=== PATIENT | female | born 1995 | race Caucasian/White ===

== ENCOUNTER 2023-08-25 23:52 | Emergency (ER) | payer OTHER ==
[~2023-08-25] VITALS: Ht 170.2 cm; Wt 84.1 kg
[2023-08-25 23:58] VITALS: TEMP 97.6
[2023-08-26 00:21] LABS: APPEARANCE,URINE HAZY (CLEAR); BILIRUBIN,URINE NEGATIVE (NEGATIVE); COLOR,URINE YELLOW (YELLOW); GLUCOSE, URINE (UA) NEGATIVE (NEGATIVE); KETONES,URINE TRACE mg/dL (NEGATIVE); LEUKOCYTE ESTERASE ,URINE SMALL (NEGATIVE); NITRATE,URINE NEGATIVE (NEGATIVE); OCCULT BLOOD,URINE NEGATIVE (NEGATIVE); PROTEIN,URINE NEGATIVE (NEGATIVE); SPECIFIC GRAVITIY, URINE 1.025 (1.003-1.030)
[2023-08-26 00:33] LABS: BACTERIA,URINE Few /HPF (None Seen); RBC,URINE None Seen /HPF (0-2)
[2023-08-26 00:34] LABS: CALCIUM OXALATE CRYSTALS,UR Rare /LPF (None Seen); SQUAMOUS EPITHELIAL CELL,UR Few /LPF (None Seen)
[2023-08-26] MEDS: ONDANSETRON HCL 4 MG/2 ML VIAL IVP ONE (01:54)
[2023-08-26] MEDS: HYDROmorphone HCL 2 MG/ML SYRINGE IVP ONE (01:54)
[2023-08-26 01:59] LABS: BASOPHILS % (AUTO) 0.4 % (0.0-2.0); EOSINOPHILS % (AUTO) 1.3 % (1.0-6.0); HEMATOCRIT 41.1 % (36-46); HEMOGLOBIN 13.3 g/dL (12.0-16.0); LYMPHOCYTES # (AUTO) 2.5 K/uL (1.0-4.8); LYMPHOCYTES % (AUTO) 36.4 % (22.0-44.0); MEAN CORPUSCULAR HEMOGLOBIN 25.2 pg (26.0-34.0); MEAN CORPUSCULAR HGB CONC 32.4 G/dL (31.0-37.0); MEAN CORPUSCULAR VOLUME 78 fL (80-100); MONOCYTES # (AUTO) 0.6 K/uL (0.1-1.0); MONOCYTES % (AUTO) 8.3 % (2.0-9.0); NEUTROPHILS # (AUTO) 3.7 K/uL (1.8-7.7); NEUTROPHILS % (AUTO) 53.6 % (40.0-70.0); PLATELET COUNT (AUTO) 287 K/uL (150-450); RED BLOOD CELL COUNT(AUTO) 5.29 MIL/uL (4.00-5.20); RED CELL DISTRIBUTION WIDTH 15.2 % (11.5-14.5)
[2023-08-26 02:08] LABS: ANION GAP 9 mmol/L (8-16); CALCIUM, TOTAL 9.4 mg/dL (8.8-10.5); CARBON DIOXIDE 29 mmol/L (22-29); CHLORIDE 104 mmol/L (98-107); CREATININE 0.67 mg/dL (0.60-1.30); GLOMERULAR FILTR. RATE CALC > 60 mL/min (>60); GLUCOSE,RANDOM 76 mg/dL (70-110); POTASSIUM 3.7 mmol/L (3.5-5.1); SODIUM SERUM 142 mmol/L (136-145); UREA NITROGEN, BLOOD 10 mg/dL (7-18)
[2023-08-26 02:14] LABS: ALANINE AMINOTRANSFERASE 25 U/L (12-78); ALBUMIN 3.7 g/dL (3.4-5.0); ALKALINE PHOSPHATASE 99 U/L (46-116); ASPARTATE AMINOTRANSFERASE 20 U/L (15-37); BILIRUBIN,TOTAL 0.3 mg/dL (0.1-1.0); LIPASE 48 U/L (16-77); TOTAL PROTEIN, SERUM 7.1 g/dL (6.4-8.2)
[2023-08-26] MEDS ORDERED: SODIUM CHLORIDE 0.9% 100 ML ONE (02:46)
[2023-08-26] MEDS ORDERED: IOHEXOL 350 MG/ML 100 ML VIAL ONE (02:46)
[2023-08-26] MEDS: ACETAMINOPHEN 1000 MG/ISO-OSM 100 ML IV ONE (03:31)
[2023-08-26] MEDS ORDERED: POLY17PO11 PO (04:15)
[2023-08-26] MEDS ORDERED: PHEN-846 PO (04:15)
[2023-08-26] MEDS ORDERED: CEPH-558 PO (04:15)
[2023-08-26 04:46] VITALS: BP 127/77; PULSE 81; RESP 19
== END 2023-08-26 04:53 | disposition home or self-care (01) ==
LOC: EMS 23:53
DX: N39.0 Urinary tract infection, site not specified (principal); K59.00 Constipation, unspecified; Z88.8 Allergy status to other drugs, medicaments and biological substances
CPT/HCPCS: 99285; 80053; 81001; 83690; 84703; 85025; 36415; 87086; 87186; 74177; 96365; 96375; J1170; J2405; Q9967; J7050; J0131

== ENCOUNTER 2024-12-21 11:40 | Emergency (ER) | payer MEDICAID, OTHER ==
[~2024-12-21] VITALS: Ht 170.2 cm; Wt 75.0 kg
[~2024-12-21 11:40] MED LIST: CEPH-558 PO; PHEN-846 PO; POLY17PO62 PO
[2024-12-21 11:43] VITALS: BP 114/65; PULSE 104; RESP 18; TEMP 98.2; O2SAT 100
== END 2024-12-21 12:34 | disposition left against medical advice (07) ==
LOC: EMS 11:41
DX: T78.40XA Allergy, unspecified, initial encounter (principal); Z53.21 Procedure and treatment not carried out due to patient leaving prior to being seen by health care provider
CPT/HCPCS: 99281; Z7502

== ENCOUNTER 2024-12-31 14:44 | Emergency (ER) | payer MEDICAID ==
[~2024-12-31] VITALS: Ht 170.2 cm; Wt 68.2 kg
[2024-12-31 14:48] VITALS: BP 134/88; PULSE 126; RESP 20; TEMP 98.6; O2SAT 100
[2024-12-31 15:12] LABS: BASOPHILS % (AUTO) 0.5 % (0.0-2.0); EOSINOPHILS % (AUTO) 0.6 % (1.0-6.0); HEMATOCRIT 40.2 % (36-46); HEMOGLOBIN 13.1 g/dL (12.0-16.0); LYMPHOCYTES % (AUTO) 24.8 % (22.0-44.0); MEAN CORPUSCULAR HEMOGLOBIN 25.3 pg (26.0-34.0); MEAN CORPUSCULAR HGB CONC 32.7 G/dL (31.0-37.0); MEAN CORPUSCULAR VOLUME 77 fL (80-100); MONOCYTES # (AUTO) 0.6 K/uL (0.1-1.0); MONOCYTES % (AUTO) 7.8 % (2.0-9.0); NEUTROPHILS # (AUTO) 5.3 K/uL (1.8-7.7); NEUTROPHILS % (AUTO) 66.3 % (40.0-70.0); PLATELET COUNT (AUTO) 276 K/uL (150-450); RED BLOOD CELL COUNT(AUTO) 5.19 MIL/uL (4.00-5.20); RED CELL DISTRIBUTION WIDTH 14.3 % (11.5-14.5); WHITE BLOOD COUNT (AUTO) 7.9 K/uL (4.5-11.0)
[2024-12-31 15:21] LABS: ANION GAP 5 mmol/L (8-16); CALCIUM, TOTAL 9.2 mg/dL (8.8-10.5); CARBON DIOXIDE 27 mmol/L (22-29); CHLORIDE 106 mmol/L (98-107); CREATININE 0.84 mg/dL (0.60-1.30); GLOMERULAR FILTR. RATE CALC > 60 mL/min (>60); GLUCOSE,RANDOM 104 mg/dL (70-110); POTASSIUM 3.7 mmol/L (3.5-5.1); SODIUM SERUM 138 mmol/L (136-145); UREA NITROGEN, BLOOD 14 mg/dL (7-18)
[2024-12-31 15:35] LABS: APPEARANCE,URINE CLEAR (CLEAR); BILIRUBIN,URINE NEGATIVE (NEGATIVE); COLOR,URINE LIGHT YELLOW (YELLOW); GLUCOSE, URINE (UA) NEGATIVE (NEGATIVE); KETONES,URINE NEGATIVE (NEGATIVE); LEUKOCYTE ESTERASE ,URINE TRACE (NEGATIVE); NITRATE,URINE NEGATIVE (NEGATIVE); OCCULT BLOOD,URINE TRACE (NEGATIVE); PROTEIN,URINE NEGATIVE (NEGATIVE); SPECIFIC GRAVITIY, URINE 1.023 (1.003-1.030); UROBILINOGEN,URINE <=1.0 mg/dL (<=1.0)
[2024-12-31 16:04] LABS: BACTERIA,URINE Moderate /HPF (None Seen); RBC,URINE 0-2 /HPF (0-2); SQUAMOUS EPITHELIAL CELL,UR Few /LPF (None Seen)
[2024-12-31] MEDS: MORPHINE SULFATE 2 MG/ML SYRINGE IVP ONE (16:20)
[2024-12-31] MEDS: SODIUM CHLORIDE 0.9% 1,000 ML IV ONE (16:21)
== END 2024-12-31 19:12 | disposition home or self-care (01) ==
LOC: EMS 14:44
DX: N83.202 Unspecified ovarian cyst, left side (principal); R10.30 Lower abdominal pain, unspecified; E78.00 Pure hypercholesterolemia, unspecified; Z87.442 Personal history of urinary calculi; Z88.1 Allergy status to other antibiotic agents; Z88.8 Allergy status to other drugs, medicaments and biological substances
CPT/HCPCS: 99285; 96374; 76856; 96361; 80048; 81001; 83690; 84702; 84703; 85025; 87077; 87086; 87186; 86850; 86900; 86901; 36415; 74018; J2270; J7030; 99284

== ENCOUNTER 2025-03-30 01:41 | Emergency (ER) | payer MEDICAID ==
[~2025-03-30] VITALS: Ht 170.2 cm; Wt 74.1 kg
[2025-03-30 01:46] VITALS: BP 132/93; PULSE 91; RESP 16; TEMP 97.9; O2SAT 100
[2025-03-30 02:24] LABS: PLATELET COUNT (AUTO) 278 K/uL (150-450); RED BLOOD CELL COUNT(AUTO) 5.33 MIL/uL (4.00-5.20); RED CELL DISTRIBUTION WIDTH 14.9 % (11.5-14.5); WHITE BLOOD COUNT (AUTO) 7.4 K/uL (4.5-11.0)
[2025-03-30 02:25] LABS: RBC MORPHOLOGY COMMENT ABNORMAL RBC MORPH
[2025-03-30 02:36] LABS: CALCIUM, TOTAL 9.0 mg/dL (8.8-10.5); CREATININE 0.53 mg/dL (0.60-1.30); GLOMERULAR FILTR. RATE CALC > 60 mL/min (>60); GLUCOSE,RANDOM 73 mg/dL (70-110); SODIUM SERUM 136 mmol/L (136-145); UREA NITROGEN, BLOOD 14 mg/dL (7-18)
== END 2025-03-30 05:29 | disposition left against medical advice (07) ==
LOC: EMS 01:42
DX: R10.9 Unspecified abdominal pain (principal); Z53.21 Procedure and treatment not carried out due to patient leaving prior to being seen by health care provider
CPT/HCPCS: 80048; 84702; 85025